=== PATIENT | male | born 1985 | race Caucasian/White ===

== ENCOUNTER → 2017-04-06 | Outpatient (CLI) | payer OTHER ==
[2016-08-26 10:50] VITALS: BP 118/79
[~2017-04-06] MED LIST: No home meds
--- NOTE | 2017-04-07 10:09 | RAD ---
Acute abdominal series to include a PA chest radiograph 04/06/2017 Clinical History: Diarrhea. Abdominal discomfort. A PA digital radiograph of the chest was obtained. Two supine and two erect AP digital radiographs of the abdomen/pelvis were obtained. No previous studies are available for comparison. The cardiac and mediastinal silhouettes are within normal limits in size and configuration. No pulmonary infiltrate is seen. No pleural effusion or pneumothorax is noted. The abdominal bowel gas pattern is nonobstructive. There is no evidence of free air. No radiopaque calculus is seen. The osseous structures are grossly intact. Impression: Negative study.
== END | disposition home or self-care (01) ==
LOC: RAD 17:22
PROVIDERS: ATTEND Family Medicine
DX: R19.7 Diarrhea, unspecified (principal)
CPT/HCPCS: 74022

== ENCOUNTER → 2020-12-06 | Emergency (ER) | payer OTHER ==
[~2020-12-06] VITALS: Ht 180.3 cm; Wt 111.3 kg
[~2020-12-06] MED LIST changes: +CONTRAST GIVEN. MC PRN; +IOHEXOL 300 MG/ML 75 ML VIAL. IV ONE
--- NOTE | 2020-12-06 10:07 | PHYS DOC ---
Past History Past Medical History: Bipolar, Depression, Other Past Surgical History: No Surgical History Alcohol Use: Heavy Drug Use: None General Adult HPI: HPI: Patient is a 35-year-old male coming in for foreign body sensation in his t hroat. Symptoms answered. Visibly moving around. Has not eaten or drink anything today. Friend is with him stating to take took all of his pills last night at one time. Has a history of bipolar disorder and she states he was "manic" yesterday. Is having difficulty remembering things. Patient states he has a remote history of GERD but this feels different. Is having no trouble with speech, breathing, managing secretions or eating. No other complaints. Review of Systems: Review of Systems: All other systems within normal limits except for as noted in the HPI Allergies: Allergies: Allergies Coded Allergies Type Severity Reaction Last Updated Verified No Known Drug Allergies 08/24/16 No Physical Exam: PE: Constitutional: Well developed, well nourished, no acute distress, non-toxic appearance. [] HENT: Normocephalic, atraumatic, bilateral external ears normal, nose normal. [] Eyes: PERRLA, conjunctiva normal, no discharge. Normal tonsils and posterior pharynx, has elongated uvula without shift. [] Neck: No rigidity, supple, no stridor. No cervical lymphadenopathy or masses [] Cardiovascular: Regular rate and rhythm, brisk cap refill [] Lungs & Thorax: Non labored symmetric respirations, no tachypnea or respiratory distress [] Abdomen: Soft, nondistended. Skin: Warm, dry, no erythema, no rash. [] Back: Unremarkable Extremities: No deformities, range of motion grossly intact, no lower extremity edema [] Neurologic: Alert and oriented X 3, no focal deficits noted. [] Psychologic: Affect normal, judgement normal, mood normal. [] EKG: EKG: [] Radiology/Procedures: Radiology/Procedures: CT Neck with Contrast 12/06/2020 10:06 AM Indications: Patient feels something is stuck and moving in throat Comparison: 12/06/2020 Technique: Multiple axial tomographic images were obtained during intravenous a dministration of 75 cc of Isovue-370. Sagittal and coronal reconstructions were performed. These were viewed on bone and soft tissue settings. Findings: Brain/sinuses:Normal Airway: Preserved. Thyroid gland: Normal Skeletal structures: Grossly unremarkable. Postoperative changes of anterior cervical fusion is seen in C6/7 level Soft tissues: Normal Pharynx/Larynx/Trachea:Unremarkable Upper chest: Normal Impression: 1.Essentially unremarkable exam. No evidence of retained foreign body seen. [] Heart Score: C/O Chest Pain: No Risk Factors: Risk Factors: DM, Current or recent (<one month) smoker, HTN, HLP, family history of CAD, obesity. Risk Scores: Score 0 - 3: 2.5% MACE over next 6 weeks - Discharge Home Score 4 - 6: 20.3% MACE over next 6 weeks - Admit for Clinical Observation Score 7 - 10: 72.7% MACE over next 6 weeks - Early Invasive Strategies Course & Med Decision Making: Course & Med Decision Making Pertinent Labs and Imaging studies reviewed. (See chart for details) No foreign body identified. Patient managing secretions and speaking in full sentences without any distress. Discussed return precautions and gargling with soda or water for symptoms. No indication of a pill being in the esophagus. [] Dragon Disclaimer: Dragon Disclaimer: This electronic medical record was generated, in whole or in part, using a voice recognition dictation system. Departure Departure: Impression: Primary Impression: Sensation of foreign body in larynx Disposition: HOME / SELF CARE / HOMELESS Condition: STABLE Referrals: JUNO MAURICE MD (PCP) Patient Instructions: Salt Water Gargle DELORES MITCHELL MD Dec 06, 2020 10:07
--- NOTE | 2020-12-06 10:58 | RAD ---
CT Neck with Contrast 12/06/2020 10:06 AM Indications: Patient feels something is stuck and moving in throat Comparison: 12/06/2020 Technique: Multiple axial tomographic images were obtained during intravenous administration of 75 cc of Isovue- 370. Sagittal and coronal reconstructions were performed. These were viewed on bone and soft tissue s ettings. Findings: Brain/sinuses:Normal Airway: Preserved. Thyroid gland: Normal Skeletal structures: Grossly unremarkable. Postoperative changes of anterior cervical fusion is seen in C6/7 level Soft tissues: Normal Pharynx/Larynx/Trachea:Unremarkable Upper chest: Normal Impression: 1.Essentially unremarkable exam. No evidence of retained foreign body seen. PQRS Compliance Statement: One or more of the following individualized dose reduction techniques were utilized for this examinat ion: 1. Automated exposure control 2. Adjustment of the mA and/or kV according to patient size 3. Use of iterative reconstruction technique Electronically signed by: Selin Forman MD (12/06/2020 10:56 AM) [id number]
[2020-12-06 11:15] VITALS: BP 130/89
== END ==
LOC: ER 09:39
DX: R09.89 Other specified symptoms and signs involving the circulatory and respiratory systems (principal); F31.9 Bipolar disorder, unspecified; K21.9 Gastro-esophageal reflux disease without esophagitis
CPT/HCPCS: 70491; 99284; Q9967